=== PATIENT | female | born 1985 ===

== ENCOUNTER 2024-02-17 09:28 | Emergency (ER) | payer OTHER, BC ==
[~2024-02-17 09:28] MED LIST: Sodium Chloride 0.9% 10 ML Syringe FLUSH PRN
[2024-02-17 09:56] LABS: APPEARANCE,URINE CLEAR (CLEAR); BILIRUBIN,URINE NEGATIVE (NEGATIVE); COLOR,URINE YELLOW (YELLOW); GLUCOSE,URINE NEGATIVE (NEGATIVE); KETONES,URINE NEGATIVE (NEGATIVE); LEUKOCYTE ESTERASE,URINE NEGATIVE (NEGATIVE); NITRITE,URINE NEGATIVE (NEGATIVE); OCCULT BLOOD,URINE TRACE-INTACT (NEGATIVE); PROTEIN,URINE NEGATIVE (NEGATIVE); UROBILINOGEN,URINE 0.2 mg/dL (0.2-1.0)
[2024-02-17 10:00] LABS: AMPHETAMINES,URINE NEGATIVE (NEGATIVE); BARBITURATES,URINE NEGATIVE (NEGATIVE); BENZODIAZEPINE,URINE NEGATIVE (NEGATIVE); MDMA (ECSTASY), URINE NEGATIVE (NEGATIVE); METHADONE,URINE NEGATIVE (NEGATIVE); METHAMPHETAMINES,URINE NEGATIVE (NEGATIVE); OPIATES,URINE NEGATIVE (NEGATIVE); OXYCODONE,URINE NEGATIVE (NEGATIVE); PHENCYCLIDINE,URINE NEGATIVE (NEGATIVE); TCA,URINE NEGATIVE (NEGATIVE)
[2024-02-17] MEDS: Iopamidol 612 MG/ML 100 ML Bottle IVPUSH ONE (10:07)
[2024-02-17] MEDS: Sodium Chloride 0.9% 1,000 ML IV ONE (10:09)
[2024-02-17] MEDS: Diphtheria,Pertussis(Acell),Tetanus Vaccine 0.5 ML Syringe IM ONE (10:09)
[2024-02-17] MEDS: HYDROmorphone 0.5 MG/0.5 ML Syringe IVPUSH ONE (10:18)
[2024-02-17] MEDS: Ondansetron 4 MG/2 ML SDV IV ONE (10:18)
[2024-02-17 10:22] LABS: BASOPHILS PERCENT AUTO 0.3 % (0.0-1.0); EOSINOPHILS PERCENT AUTO 0.3 % (1.0-3.0); HEMATOCRIT 37.1 % (37.0-47.0); HEMOGLOBIN 12.6 g/dL (12.0-16.0); LYMPHOCYTES PERCENT AUTO 17.1 % (20.5-50.1); MEAN CORPUSCULAR HEMOGLOBIN 31.2 pg (27.0-34.0); MEAN CORPUSCULAR VOLUME 91.8 fL (80-100); MONOCYTES PERCENT AUTO 7.6 % (2-8); NEUTROPHILS PERCENT AUTO 74.7 % (42.2-75.2); PLATELET COUNT,PLT 203 10^3/uL (150-450); RED BLOOD CELL COUNT 4.04 10^6/uL (4.2-5.4); WHITE BLOOD CELL COUNT,WBC 7.4 10^3/uL (5.0-10.0)
[2024-02-17] MEDS: Bacitracin Oint 1 GM U/D Packet TOP ONE (10:38)
[2024-02-17 10:42] LABS: A/G RATIO 1.1; ALANINE AMINOTRANSFERASE,ALT 26 U/L (14-59); ALBUMIN 3.7 g/dL (3.4-5.0); ALKALINE PHOSPHATASE 46 U/L (46-116); AMYLASE 47 U/L (25-115); ANION GAP 10.6 mEq/L (7-13); ASPARTATE AMNIOTRANSFERASE,AST 25 U/L (15-37); BILIRUBIN TOTAL 0.6 mg/dL (0.2-1.0); BLOOD UREA NITROGEN,BUN 16 mg/dL (7-18); BUN/CREATININE RATIO 21.1 (No establ ref range); CALCIUM 8.7 mg/dL (8.5-10.1); CARBON DIOXIDE,CO2 31 mmol/L (21-32); CHLORIDE,CL 103 mmol/L (98-107); CREATININE 0.76 mg/dL (0.55-1.02); EST CRCL DRUG DOSING (CG) 80.94 mL/min; GLUCOSE RANDOM 83 mg/dL (70-99); LIPASE 42 U/L (16-77); POTASSIUM,K 3.6 mmol/L (3.5-5.1); SODIUM,NA 141 mmol/L (136-145)
[2024-02-17 10:44] LABS: BACTERIA,URINE FEW /HPF (0-FEW/HPF); EPITHELIAL CELLS,URINE FEW /HPF (NOT SEEN); MUCUS,URINE FEW /LPF (NOT SEEN); WBC,URINE 0-5 /HPF (0-5/HPF)
[2024-02-17 10:46] LABS: ESTIMATED GFR 104 mL/min (>=60); ETHANOL BLOOD MEDICAL < 3 mg/dL (0)
[2024-02-17 11:03] LABS: PTT,PARTIAL THROMBOPLSTIN TIME 23.6 SEC (22.0-34.0)
[2024-02-17 11:07] LABS: PROTHROMBIN TIME 9.9 SEC (9.0-12.0)
[2024-02-17] MEDS: HYDROmorphone 1 MG/ML Syringe IVPUSH ONE (11:07)
[2024-02-17] MEDS: Ketorolac 30 MG/ML SDV IVPUSH ONE (11:19)
== END 2024-02-17 11:56 | disposition home or self-care (01) ==
LOC: DL.ED 09:28
DX: S00.83XA Contusion of other part of head, initial encounter (principal); S80.12XA Contusion of left lower leg, initial encounter; S40.022A Contusion of left upper arm, initial encounter; S80.211A Abrasion, right knee, initial encounter; Z23 Encounter for immunization; Z88.1 Allergy status to other antibiotic agents; V89.2XXA Person injured in unspecified motor-vehicle accident, traffic, initial encounter
CPT/HCPCS: 36415; 70450; 70486; 71260; 72125; 73090-LT; 73562-LT; 74177; 80053; 80305-QW; 80307; 81001; 81025; 82150; 83690; 85025; 85610; 85730; 90471; 90715; 96374; 96375; 96376; 99284; 99285-25; A9270-GY; J1170; J1885; J2405; J7030; Q9967